=== PATIENT | female | born 1975 | race African-American/Black ===

== ENCOUNTER 2017-04-15 13:19 | Emergency (ER) | payer MEDICAID ==
[~2017-04-15] VITALS: Ht 160 cm; Wt 68.5 kg
[2017-04-15] MEDS ORDERED: VIBRAMYCIN100 MG ORAL (13:30)
[2017-04-15 13:44] VITALS: BP 134/76
--- NOTE | 2017-04-15 14:03 | Emergency Room Report ---
History of Present Illness General Chief Complaint: Nausea, Vomiting, and Diarrhea Source: Patient Present Illness HPI Patient 41-year-old female who presented after increased abdominal pain as well as vomiting and diarrhea. Patient reported having increased left lower quadrant pain. Patient reports having increased left lower abdominal cramping and tenderness. She denied any fever. Patient reported having no hematemesis or bloody stools. She denied recent surgery. She had previous visit for similar symptoms and was started on doxycycline. Had diarrhea had began prior antibiotics. Patient taken Imodium with some improvement Allergies: Coded Allergies: No Known Allergies (Unverified , 04/15/17) Patient History Past Medical History: see triage record Last Menstrual Period: 04/07/17 Reviewed Nursing Documentation: PMH: Agreed, PSxH: Agreed Nursing Documentation-PMH Past Medical History: No Stated History Review of Systems All Other Systems: negative except mentioned in HPI Physical Exam Vital Signs Date Time Temp Pulse Resp B/P (MAP) Pulse Ox O2 Delivery O2 Flow Rate FiO2 04/15/17 13:27 97.5 63 18 134/76 100 Room Air Sp02 EP Interpretation: reviewed, normal General Appearance: normal inspection, well appearing, no apparent distress, alert, GCS 15 Head: atraumatic ENT: normal ENT inspection, hearing grossly normal, normal voice Neck: normal inspection, full range of motion, supple, no bony tend Respiratory: normal inspection, lungs clear, normal breath sounds, no respiratory distress, no retraction, no wheezing Cardiovascular #1: regular rate, rhythm, no edema Gastrointestinal: normal inspection, normal bowel sounds, non tender, soft, no guarding, no hernia Genitourinary: no CVA tenderness Musculoskeletal: normal inspection, back normal, normal range of motion Neurologic: normal inspection, alert, oriented x3, responsive, sergeant of corrections III-XII nml as tested, speech normal Psychiatric: normal inspection, judgement/insight normal, mood/affect normal Skin: normal inspection, normal color, no rash Medical Decision Making Diagnostic Impression: Primary Impression: Gastroenteritis ER Course Patient presented for abdominal pain. Differential diagnoses included ischemic bowel, appendicitis, perforated viscus, abdominal aortic aneurysm, inferior myocardial infarction, viral gastroenteritis Because of complexity of patient's case laboratory testing and imaging studies were ordered.CT abdomen pelvis read by radiology showed no evidence of acute bowel obstruction or appendicitis. Laboratory testing was unremarkable. The patient is advised to follow up with primary care doctor in 1-2 days. Patient is advised to return if any worsening condition or if any changes in status that are concerning. Labs Test 04/15/17 13:22 04/15/17 14:15 Urine Color Pale yellow Urine Appearance Clear Urine pH 6 (4.5-8.0) Urine Specific [place] 1.015 (1.005-1.035) Urine Protein Negative (NEGATIVE) Urine Glucose (UA) Negative (NEGATIVE) Urine Ketones Negative (NEGATIVE) Urine Occult Blood 3+ (NEGATIVE) Urine Nitrite Negative (NEGATIVE) Urine Bilirubin Negative (NEGATIVE) Urine Urobilinogen Normal MG/DL (0.0-1.0) Urine Leukocyte Esterase Negative (NEGATIVE) Urine RBC 2-4 /HPF (0 - 2) Urine WBC 0-2 /HPF (0 - 2) Urine Squamous Epithelial Cells Occasional /LPF Urine Bacteria None /HPF (NONE) Urine HCG, Qualitative Negative White Blood Count 5.5 K/UL (4.8-10.8) Red Blood Count 3.68 M/UL (4.20-5.40) Hemoglobin 12.5 G/DL (12.0-16.0) Hematocrit 37.5 % (37.0-47.0) Mean Corpuscular Volume 102 FL (80-99) Mean Corpuscular Hemoglobin 34.0 PG (27.0-31.0) Mean Corpuscular Hemoglobin Concent 33.4 G/DL (32.0-36.0) Red Cell Distribution Width 11.2 % (11.6-14.8) Platelet Count 255 K/UL (150-450) Mean Platelet Volume 7.6 FL (6.5-10.1) Neutrophils (%) (Auto) 41.3 % (45.0-75.0) Lymphocytes (%) (Auto) 44.3 % (20.0-45.0) Monocytes (%) (Auto) 11.8 % (1.0-10.0) Eosinophils (%) (Auto) 0.8 % (0.0-3.0) Basophils (%) (Auto) 1.9 % (0.0-2.0) Sodium Level 139 MMOL/L (136-145) Potassium Level 3.9 MMOL/L (3.5-5.1) Chloride Level 104 MMOL/L (98-107) Carbon Dioxide Level 26 MMOL/L (21-32) Anion Gap 9 mmol/L (5-15) Blood Urea Nitrogen 7 mg/dL (7-18) Creatinine 0.7 MG/DL (0.55-1.30) Estimat Glomerular Filtration Rate > 60 mL/min (>60) Glucose Level 90 MG/DL (74-106) Calcium Level 9.1 MG/DL (8.5-10.1) Total Bilirubin 0.4 MG/DL (0.2-1.0) Aspartate Amino Transf (AST/SGOT) 17 U/L (15-37) Alanine Aminotransferase (ALT/SGPT) 18 U/L (12-78) Alkaline Phosphatase 47 U/L (46-116) Total Protein 7.3 G/DL (6.4-8.2) Albumin 3.9 G/DL (3.4-5.0) Globulin 3.4 g/dL Albumin/Globulin Ratio 1.1 (1.0-2.7) Lipase 96 U/L (73-393) Last Vital Signs Date Time Temp Pulse Resp B/P (MAP) Pulse Ox O2 Delivery O2 Flow Rate FiO2 04/15/17 13:44 97.5 18 134/76 100 Room Air 04/15/17 13:27 63 Status: improved Disposition: HOME, SELF-CARE Condition: Stable Scripts Dicyclomine Hcl* (BENTYL*) 10 Mg Capsule 10 MG ORAL FOUR TIMES A DAY, #20 CAP Prov: Sanya Bermudez 04/15/17 Ondansetron (Zofran) 4 Mg Tablet 4 MG ORAL Q6H Y for Nausea & Vomiting, #30 TAB 0 Refills Prov: Sanya Bermudez 04/15/17 Referrals: [facility] (PCP) Sanya Bermudez Apr 15, 2017 14:03
[2017-04-15 14:12] LABS: APPEARANCE,URINE CLEAR; BILIRUBIN, URINE NEGATIVE (NEGATIVE); COLOR,URINE PALE YELLOW; GLUCOSE, URINE (UA) NEGATIVE (NEGATIVE); KETONES,URINE NEGATIVE (NEGATIVE); LEUKOCYTE ESTERASE ,URINE NEGATIVE (NEGATIVE); NITRITE,URINE NEGATIVE (NEGATIVE); PH,URINE 6 (4.5-8.0); PROTEIN,URINE NEGATIVE (NEGATIVE); UROBILINOGEN,URINE NORMAL MG/DL (0.0-1.0)
[2017-04-15] MEDS ORDERED: Lidocaine 2% Visc 15ml soln ORAL ONE (14:15)
[2017-04-15] MEDS ORDERED: Dicyclomine HCl 10mg/5ml oral soln ORAL ONE (14:15)
[2017-04-15] MEDS ORDERED: Mylanta II UD 30ml ORAL ONE (14:15)
[2017-04-15 14:34] LABS: BASOPHILS % (AUTO) 1.9 % (0.0-2.0); EOSINOPHILS % (AUTO) 0.8 % (0.0-3.0); HEMATOCRIT 37.5 % (37.0-47.0); HEMOGLOBIN 12.5 G/DL (12.0-16.0); LYMPHOCYTES % (AUTO) 44.3 % (20.0-45.0); MEAN CORPUSCULAR VOLUME 102 FL (80-99); MONOCYTES % (AUTO) 11.8 % (1.0-10.0); NEUTROPHILS % (AUTO) 41.3 % (45.0-75.0); PLATELET COUNT 255 K/UL (150-450); RED BLOOD COUNT 3.68 M/UL (4.20-5.40); RED CELL DISTRIBUTION WIDTH 11.2 % (11.6-14.8); WHITE BLOOD COUNT 5.5 K/UL (4.8-10.8)
[2017-04-15 15:00] LABS: ANION GAP 9 mmol/L (5-15); BLOOD UREA NITROGEN 7 mg/dL (7-18); CALCIUM 9.1 MG/DL (8.5-10.1); CARBON DIOXIDE 26 MMOL/L (21-32); CHLORIDE 104 MMOL/L (98-107); CREATININE 0.7 MG/DL (0.55-1.30); POTASSIUM 3.9 MMOL/L (3.5-5.1); SODIUM 139 MMOL/L (136-145)
[2017-04-15 15:07] LABS: ALANINE AMINOTRANSFERASE 18 U/L (12-78); ALBUMIN 3.9 G/DL (3.4-5.0); ALBUMIN/GLOBULIN RATIO 1.1 (1.0-2.7); ALKALINE PHOSPHATASE 47 U/L (46-116); ASPARTATE AMINO TRANSFERASE 17 U/L (15-37); BILIRUBIN,TOTAL 0.4 MG/DL (0.2-1.0)
[2017-04-15 15:39] VITALS: BP 133/70
--- NOTE | 2017-04-15 16:16 | Diagnostic Imaging Report ---
Indication: Abdominal pain Technique: Continuous helical transaxial imaging of the abdomen and pelvis was obtained from the lung bases to the pubic symphysis during intravenous contrast administration. Coronal 2-D reformats were also obtained. Study obtained in a Siemens sensation [address] Automatic Exposure Control was utilized. Total Dose length Product (DLP): [address] Dose Index Volume (CTDIvol): 0.15, 15.91 mGy Comparison: None Findings: The lung bases are clear. The appendix is retrocecal and appears normal. There is no evidence of bowel obstruction. Uterus and both ovaries are noted. Small ovarian follicles or cysts are present. Bladder is unremarkable. There is no hydronephrosis. Both kidneys enhance normally. There are no renal stones identified. The liver and spleen appear unremarkable. The gallbladder is contracted and not evaluated well on this study. Impression: No acute findings identified. The CT scanner at [facility] is accredited by the [employer] and the scans are performed using dose optimization techniques as appropriate to a performed exam including Automatic Exposure control.
[2017-04-15] MEDS ORDERED: ZOFRAN4 MG ORAL (16:56)
[2017-04-15] MEDS ORDERED: BENTYL10 MG ORAL (16:56)
[2017-04-15 17:14] VITALS: BP 133/70
== END 2017-04-15 17:17 | disposition home or self-care (01) ==
LOC: EMR 13:40
DX: K52.9 Noninfective gastroenteritis and colitis, unspecified (principal)
CPT/HCPCS: 36415; 74177; 80053; 81003; 81025; 83690; 85025; 96374; 99284; Q9967

== ENCOUNTER 2018-06-17 21:44 | Emergency (ER) | payer MEDICAID ==
[~2018-06-17] VITALS: Ht 160 cm; Wt 74.8 kg
[~2018-06-17 21:44] MED LIST: BENTYL10 MG ORAL; VIBRAMYCIN100 MG ORAL; ZOFRAN4 MG ORAL
[2018-06-17] MEDS ORDERED: NKM (22:01)
[2018-06-17] MEDS ORDERED: DiphenhydrAMINE 50mg/ml Inj IVP ONE (22:30)
[2018-06-17] MEDS ORDERED: Metoclopramide 10mg/2ml Inj IVP ONE (22:30)
[2018-06-17] MEDS ORDERED: Morphine Sulfate 2mg/ml Inj IVP ONE (22:30)
--- NOTE | 2018-06-17 22:30 | Emergency Room Report ---
History of Present Illness General Chief Complaint: Back Pain-No Injury Source: Patient Present Illness HPI Patient presents with 4 days of back pain, muscle aches and abdominal bloating. She's not sure whether she is at this time. She has also felt nauseated. Today she started feeling cold but didn't document any fevers. She' s never had illness like this before. She denies any trauma. There is no dysuria. She is not sure if she some food to cause these problems. No sore throat, cough, wheezing, chest pain, diarrhea. 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 Last Menstrual Period: 05/30/2018 Now: No : 6 Para: 2 Reviewed Nursing Documentation: PMH: Agreed; PSxH: Agreed Nursing Documentation-PMH Past Medical History: No Stated History Review of Systems All Other Systems: negative except mentioned in HPI Physical Exam Vital Signs Date Time Temp Pulse Resp B/P (MAP) Pulse Ox O2 Delivery O2 Flow Rate FiO2 06/17/18 21:58 98.1 58 16 128/71 99 Room Air Sp02 EP Interpretation: reviewed, normal General Appearance: well appearing, GCS 15, mild distress Head: normocephalic Eyes: bilateral eye normal inspection, bilateral eye PERRL ENT: normal pharynx, moist mucus membranes Neck: supple Respiratory: chest non-tender, lungs clear, normal breath sounds Cardiovascular #1: regular rate, rhythm Cardiovascular #2: 2+ radial (R) Gastrointestinal: normal inspection, normal bowel sounds, no mass, non- distended, no guarding, no rebound, tenderness - Diffuse but more epigastric Genitourinary: no CVA tenderness Musculoskeletal: gait/station normal, normal range of motion, tender - Lumbar area more musculoskeletal also and upper back Neurologic: alert, oriented x3, grossly normal Psychiatric: anxious Skin: normal inspection, warm/dry Medical Decision Making Diagnostic Impression: Primary Impression: Abdominal pain Qualified Codes: R10.84 - Generalized abdominal pain Additional Impressions: Vomiting Qualified Codes: R11.2 - Nausea with vomiting, unspecified Back pain Qualified Codes: M54.9 - Dorsalgia, unspecified ER Course Patient presents with back pain and muscle aches and bloating. Differential includes viral syndrome, gastroenteritis, early , pyelonephritis amongst others. She will be evaluated with labs. She will be treated with IV hydration and analgesia. If test is negative of consideration of possible x-rays of her back. Labs with normal CBC with differential. CMP normal. Urinalysis with few red blood cells. test negative. Patient is improved with treatment. The pain is decreased and she is no longer vomiting and nausea is improved. Discussed outpatient observation with the patient. Patient stable for outpatient observation and treatment. Laboratory Tests Test 06/17/18 23:00 06/18/18 01:45 Urine Color Pale yellow Urine Appearance Clear Urine pH 7 (4.5-8.0) Urine Specific [place] 1.010 (1.005-1.035) Urine Protein Negative (NEGATIVE) Urine Glucose (UA) Negative (NEGATIVE) Urine Ketones Negative (NEGATIVE) Urine Blood 3+ (NEGATIVE) H Urine Nitrite Negative (NEGATIVE) Urine Bilirubin Negative (NEGATIVE) Urine Urobilinogen Normal MG/DL (0.0-1.0) Urine Leukocyte Esterase Negative (NEGATIVE) Urine RBC 10-15 /HPF (0 - 2) H Urine WBC 0-2 /HPF (0 - 2) Urine Squamous Epithelial Cells Few /LPF (NONE/OCC) Urine Bacteria Few /HPF (NONE) Urine HCG, Qualitative Negative (NEGATIVE) Sodium Level 136 MMOL/L (136-145) Potassium Level 5.0 MMOL/L (3.5-5.1) Chloride Level 105 MMOL/L (98-107) Carbon Dioxide Level 25 MMOL/L (21-32) Anion Gap 6 mmol/L (5-15) Blood Urea Nitrogen 14 mg/dL (7-18) Creatinine 0.7 MG/DL (0.55-1.30) Estimate Glomerular Filtration Rate > 60 mL/min (>60) Glucose Level 90 MG/DL (74-106) Calcium Level 9.0 MG/DL (8.5-10.1) Total Bilirubin 0.3 MG/DL (0.2-1.0) Aspartate Amino Transferase (AST) 36 U/L (15-37) Alanine Aminotransferase (ALT) 21 U/L (12-78) Alkaline Phosphatase 55 U/L (46-116) Total Protein 7.3 G/DL (6.4-8.2) Albumin 3.6 G/DL (3.4-5.0) Globulin 3.7 g/dL Albumin/Globulin Ratio 1.0 (1.0-2.7) Lipase 212 U/L (73-393) Chlamydia trachomatis RNA Pending Neisseria gonorrhoeae RNA Pending White Blood Count 5.4 K/UL (4.8-10.8) Red Blood Count 3.44 M/UL (4.20-5.40) L Hemoglobin 11.5 G/DL (12.0-16.0) L Hematocrit 33.5 % (37.0-47.0) L Mean Corpuscular Volume 97 FL (80-99) Mean Corpuscular Hemoglobin 33.4 PG (27.0-31.0) H Mean Corpuscular Hemoglobin Concent 34.3 G/DL (32.0-36.0) Red Cell Distribution Width 11.9 % (11.6-14.8) Platelet Count 196 K/UL (150-450) Mean Platelet Volume 7.2 FL (6.5-10.1) Neutrophils (%) (Auto) 40.9 % (45.0-75.0) L Lymphocytes (%) (Auto) 46.3 % (20.0-45.0) H Monocytes (%) (Auto) 10.2 % (1.0-10.0) H Eosinophils (%) (Auto) 1.5 % (0.0-3.0) Basophils (%) (Auto) 1.1 % (0.0-2.0) Prothrombin Time 10.0 SEC (9.30-11.50) Prothrombin Time INR 0.9 (0.9-1.1) PTT 29 SEC (23-33) Last Vital Signs Date Time Temp Pulse Resp B/P (MAP) Pulse Ox O2 Delivery O2 Flow Rate FiO2 06/18/18 03:10 98.0 59 16 121/79 100 Room Air Status: improved Disposition: HOME, SELF-CARE Condition: Improved Scripts Ondansetron Odt* (ZOFRAN ODT*) 4 Mg Tab.rapdis 4 MG BC EVERY 8 HOURS for 8 Days, #10 TAB 1 Refill Prov: Rene Ely MD 06/18/18 Famotidine (PEPCID AC) 20 Mg Tablet 20 MG PO DAILY, #20 TAB Prov: Rene lEy MD 06/18/18 Rene Ely MD Jun 17, 2018 22:30
[2018-06-17 23:00] VITALS: BP 120/71
[2018-06-18] VITALS: BP 120/74
[2018-06-18] LABS: APPEARANCE,URINE CLEAR; BILIRUBIN, URINE NEGATIVE (NEGATIVE); COLOR,URINE PALE YELLOW; GLUCOSE, URINE (UA) NEGATIVE (NEGATIVE); KETONES,URINE NEGATIVE (NEGATIVE); LEUKOCYTE ESTERASE ,URINE NEGATIVE (NEGATIVE); NITRITE,URINE NEGATIVE (NEGATIVE); PH,URINE 7 (4.5-8.0); PROTEIN,URINE NEGATIVE (NEGATIVE); UROBILINOGEN,URINE NORMAL MG/DL (0.0-1.0)
[2018-06-18 00:01] LABS: ANION GAP 6 mmol/L (5-15); BLOOD UREA NITROGEN 14 mg/dL (7-18); CARBON DIOXIDE 25 MMOL/L (21-32); CHLORIDE 105 MMOL/L (98-107); CREATININE 0.7 MG/DL (0.55-1.30); SODIUM 136 MMOL/L (136-145)
[2018-06-18 00:06] LABS: ALANINE AMINOTRANSFERASE 21 U/L (12-78); ALBUMIN 3.6 G/DL (3.4-5.0); ALKALINE PHOSPHATASE 55 U/L (46-116); ASPARTATE AMINO TRANSFERASE 36 U/L (15-37); BILIRUBIN,TOTAL 0.3 MG/DL (0.2-1.0)
[2018-06-18] MEDS ORDERED: LET 3ml Soln TOPIC ONE (00:30)
[2018-06-18 01:54] LABS: BASOPHILS % (AUTO) 1.1 % (0.0-2.0); EOSINOPHILS % (AUTO) 1.5 % (0.0-3.0); HEMATOCRIT 33.5 % (37.0-47.0); HEMOGLOBIN 11.5 G/DL (12.0-16.0); LYMPHOCYTES % (AUTO) 46.3 % (20.0-45.0); MEAN CORPUSCULAR VOLUME 97 FL (80-99); MONOCYTES % (AUTO) 10.2 % (1.0-10.0); NEUTROPHILS % (AUTO) 40.9 % (45.0-75.0); PLATELET COUNT 196 K/UL (150-450); RED BLOOD COUNT 3.44 M/UL (4.20-5.40); RED CELL DISTRIBUTION WIDTH 11.9 % (11.6-14.8); WHITE BLOOD COUNT 5.4 K/UL (4.8-10.8)
[2018-06-18 02:04] LABS: INR 0.9 (0.9-1.1)
[2018-06-18] MEDS ORDERED: ONDANSETRON ODT4 MG BC (02:53)
[2018-06-18] MEDS ORDERED: PEPCID AC20 M2 PO (02:53)
[2018-06-18 03:10] VITALS: BP 121/79
== END 2018-06-18 | disposition home or self-care (01) ==
LOC: EMR 06-18 03:00
DX: R10.9 Unspecified abdominal pain (principal); R14.0 Abdominal distension (gaseous); M79.10 Myalgia, unspecified site; M54.5 Low back pain; M54.6 Pain in thoracic spine
CPT/HCPCS: 36415; 80053; 81003; 81025; 83690; 85025; 85610; 85730; 87491; 87590; 96361; 96374; 96375; 99284; J1200; J2270; J2765

== ENCOUNTER 2019-03-09 13:31 | Emergency (ER) | payer MEDICAID ==
[~2019-03-09] VITALS: Ht 160 cm; Wt 70.3 kg
[~2019-03-09 13:31] MED LIST changes: +NKM; +ONDANSETRON ODT4 MG BC; +PEPCID AC20 M2 PO
[2019-03-09 14:00] VITALS: BP 134/76
--- NOTE | 2019-03-09 14:00 | NUR ---
ED Nurse Note: Pt came in AAOx4, vss, with no signs of distress. pt. came from home with c/o left abdominal cramping pain for 1 week and vaginal spotting since yesteday
--- NOTE | 2019-03-09 14:11 | NUR ---
ED Nurse Note:urine sent to labs
--- NOTE | 2019-03-09 14:28 | NUR ---
Note connie in EDM - 03/09/19 at 1430 by [email or web address] ED Nurse Note: pt took oral medicatins with no issues.
--- NOTE | 2019-03-09 14:28 | Emergency Room Report ---
History of Present Illness General Chief Complaint: Female Urogenital Problems Source: Patient Present Illness HPI 43-year-old female presents to the emergency department complaining of 6 out of 10 severity low back and left lower quadrant pain in addition to vaginal spotting and cramping x1 week. Patient reports she was 2 days past due for her menstrual cycle. Patient reports recent unprotected intercourse 2 weeks ago she states she is not currently taking any control. She denies vaginal discharge otherwise. She denies adnexal tenderness or pain she denies swollen tender lymph nodes, joint pains, fevers or chills. Patient reports when she raises her left arm she has exacerbation of severe lower left-sided abdominal pain. Denies trauma or fall. Patient also reports tenderness to palpation to the left side of the low back. Patient denies midline spinal pain or tenderness. Denies constipation or diarrhea. Denies hematuria, urinary frequency, urgency or dysuria. She denies nausea or vomiting. Allergies: Coded Allergies: No Known Allergies (Unverified , 04/15/17) Patient History Past Medical History: see triage record Past Surgical History: none Pertinent Family History: none Last Menstrual Period: 02/09/19 Now: No Reviewed Nursing Documentation: PMH: Agreed; PSxH: Agreed Nursing Documentation-PMH Past Medical History: No Stated History Review of Systems All Other Systems: negative except mentioned in HPI Physical Exam Vital Signs Date Time Temp Pulse Resp B/P (MAP) Pulse Ox O2 Delivery O2 Flow Rate FiO2 03/09/19 13:47 98.2 58 18 121/75 (90) 99 Room Air Sp02 EP Interpretation: reviewed, normal General Appearance: alert, GCS 15, non-toxic, mild distress Head: normocephalic, atraumatic Eyes: bilateral eye normal inspection, bilateral eye PERRL ENT: hearing grossly normal, normal voice Neck: full range of motion Respiratory: chest non-tender, lungs clear, normal breath sounds, speaking full sentences Cardiovascular #1: regular rate, rhythm Gastrointestinal: normal bowel sounds, soft, non-distended, no guarding, tenderness - LLQ TTP, no adnexal ttp. Rectal: deferred Genitourinary: normal inspection, CVA tenderness (L) Musculoskeletal: back normal, gait/station normal, normal range of motion, tender - TTP to the left sided paraspinal musculature of the upper lumbar and lower t-spine area/ ttp radiating outward around the flank towards the anterior abdomen and LLQ. No midline spinous process tenderness. no step-offs. Neurologic: alert, oriented x3, responsive, motor strength/tone normal, sensory intact, speech normal, grossly normal Psychiatric: judgement/insight normal Skin: no rash Lymphatic: no adenopathy Medical Decision Making PA Attestation Dr. Bermudez is my supervising Physician whom patient management has been discussed with. Diagnostic Impression: Primary Impression: Colitis Additional Impression: Abdominal pain Qualified Codes: R10.32 - Left lower quadrant pain ER Course 43-year-old female presents to the emergency department complaining of 6 out of 10 severity low back and left lower quadrant pain in addition to vaginal spotting and cramping x1 week. Patient reports she was 2 days past due for her menstrual cycle. Patient reports recent unprotected intercourse 2 weeks ago she states she is not currently taking any control. She denies vaginal discharge otherwise. She denies adnexal tenderness or pain she denies swollen tender lymph nodes, joint pains, fevers or chills. Patient reports when she raises her left arm she has exacerbation of severe lower left-sided abdominal pain. Denies trauma or fall. Patient also reports tenderness to palpation to the left side of the low back. Patient denies midline spinal pain or tenderness. Denies constipation or diarrhea. Denies hematuria, urinary frequency, urgency or dysuria. She denies nausea or vomiting. Ddx considered but are not limited to , ovarian torsion, tubo-ovarian abscess, Diverticulitis, acute appy, diarrhea,UC, PUD, GE, pancreatitis, gallstone, kidney stone, pyelonephritis, UTI, obstruction. Vital signs: are WNL, pt. is afebrile H&PE are most consistent with LLQ and left flank pain will r/o pyelo, ectopic, renal calculi, pt. will require labs and imaging due to pain on examination. ORDERS: -CBC, CMP, lipase: WNL - UA: Most indicative of contamination: presence of equal amounts of bacteria and squamous cells, no elevation in inflammatory markers, nitrite negative. -Urine HcG: Negative - CT abdomen and pelvis no contrast: suspicious for colitis. normal appendix. ED INTERVENTIONS: -- Lidoderm TP - [place] PO DISCHARGE: At this time pt. is stable for d/c to home. Will provide printed patient care instructions, and any necessary prescriptions. Care plan and follow up instructions have been discussed with the patient prior to discharge. Labs Test 03/09/19 14:30 03/09/19 15:30 Urine Color Pale yellow Urine Appearance Clear Urine pH 7 (4.5-8.0) Urine Specific [place] 1.005 (1.005-1.035) Urine Protein Negative (NEGATIVE) Urine Glucose (UA) Negative (NEGATIVE) Urine Ketones Negative (NEGATIVE) Urine Blood 2+ (NEGATIVE) Urine Nitrite Negative (NEGATIVE) Urine Bilirubin Negative (NEGATIVE) Urine Urobilinogen Normal MG/DL (0.0-1.0) Urine Leukocyte Esterase 1+ (NEGATIVE) Urine RBC 0-2 /HPF (0 - 2) Urine WBC 0-2 /HPF (0 - 2) Urine Squamous Epithelial Cells Occasional /LPF Urine Bacteria Occasional /HPF (NONE) Urine HCG, Qualitative Negative (NEGATIVE) White Blood Count 5.4 K/UL (4.8-10.8) Red Blood Count 3.74 M/UL (4.20-5.40) Hemoglobin 12.6 G/DL (12.0-16.0) Hematocrit 36.0 % (37.0-47.0) Mean Corpuscular Volume 96 FL (80-99) Mean Corpuscular Hemoglobin 33.8 PG (27.0-31.0) Mean Corpuscular Hemoglobin Concent 35.1 G/DL (32.0-36.0) Red Cell Distribution Width 10.7 % (11.6-14.8) Platelet Count 209 K/UL (150-450) Mean Platelet Volume 7.6 FL (6.5-10.1) Neutrophils (%) (Auto) 49.8 % (45.0-75.0) Lymphocytes (%) (Auto) 39.9 % (20.0-45.0) Monocytes (%) (Auto) 7.4 % (1.0-10.0) Eosinophils (%) (Auto) 0.7 % (0.0-3.0) Basophils (%) (Auto) 2.1 % (0.0-2.0) Sodium Level 139 MMOL/L (136-145) Potassium Level 4.3 MMOL/L (3.5-5.1) Chloride Level 105 MMOL/L (98-107) Carbon Dioxide Level 26 MMOL/L (21-32) Anion Gap 8 mmol/L (5-15) Blood Urea Nitrogen 5 mg/dL (7-18) Creatinine 0.7 MG/DL (0.55-1.30) Estimat Glomerular Filtration Rate > 60 mL/min (>60) Glucose Level 92 MG/DL (74-106) Calcium Level 8.7 MG/DL (8.5-10.1) Total Bilirubin 0.5 MG/DL (0.2-1.0) Aspartate Amino Transf (AST/SGOT) 17 U/L (15-37) Alanine Aminotransferase (ALT/SGPT) 22 U/L (12-78) Alkaline Phosphatase 56 U/L (46-116) Total Protein 7.0 G/DL (6.4-8.2) Albumin 3.9 G/DL (3.4-5.0) Globulin 3.1 g/dL Albumin/Globulin Ratio 1.3 (1.0-2.7) Lipase 106 U/L (73-393) CT/MRI/US Diagnostic Results CT/MRI/US Diagnostic Results : Imaging Test Ordered: CT Abdomen and Pelvis With and Without Contrast Impression " Normal appendix, fluid and gas-filled small bowel loops nonspecific but may represent enteritis or ileus, mild prominence of the pérez of the colon may be secondary to under distention or colitis is not excluded." Per official radiology report- Please see report for specific details. Last Vital Signs Date Time Temp Pulse Resp B/P (MAP) Pulse Ox O2 Delivery O2 Flow Rate FiO2 03/09/19 13:47 98.2 58 18 121/75 (90) 99 Room Air Status: improved Disposition: HOME, SELF-CARE Condition: Stable Scripts Dicyclomine Hcl* (DICYCLOMINE HCL*) 10 Mg Capsule 10 MG ORAL TID, #9 CAP Prov: Tina Jefferson 03/09/19 Acetaminophen With Codeine (T#3) (TYLENOL #3 TAB*) Y Tab 1 TAB ORAL Q6H PRN for For Pain, #10 TAB Prov: Tina Jefferson 03/09/19 Metronidazole* (FLAGYL*) 500 Mg Tablet 500 MG ORAL BID for 7 Days, #14 TAB Prov: Tina Jefferson 03/09/19 Referrals: [facility] (PCP) Patient Instructions: Colitis Additional Instructions: Take medications as directed. ! Do not drink alcohol while taking Flagyl/Metronidazole as this will cause a skin reaction. Follow up with a Primary Care Provider in 3-5 days, even if your symptoms have resolved. --Please review list of primary care clinics, if you do not already have a primary care provider Return sooner to ED if new symptoms occur, or current symptoms become worse. - Please note that this Emergency Department Report was dictated using [employer] director technology software, occasionally this can lead to erroneous entry secondary to interpretation by the dictation equipment. Tina Jefferson Mar 09, 2019 14:28
--- NOTE | 2019-03-09 14:35 | NUR ---
ED Nurse Note: Medication applied with no issues.
[2019-03-09 14:47] LABS: APPEARANCE,URINE CLEAR; BILIRUBIN, URINE NEGATIVE (NEGATIVE); COLOR,URINE PALE YELLOW; GLUCOSE, URINE (UA) NEGATIVE (NEGATIVE); KETONES,URINE NEGATIVE (NEGATIVE); LEUKOCYTE ESTERASE ,URINE 1+ (NEGATIVE); NITRITE,URINE NEGATIVE (NEGATIVE); PH,URINE 7 (4.5-8.0); PROTEIN,URINE NEGATIVE (NEGATIVE); UROBILINOGEN,URINE NORMAL MG/DL (0.0-1.0)
[2019-03-09 15:42] LABS: BASOPHILS % (AUTO) 2.1 % (0.0-2.0); EOSINOPHILS % (AUTO) 0.7 % (0.0-3.0); HEMOGLOBIN 12.6 G/DL (12.0-16.0); LYMPHOCYTES % (AUTO) 39.9 % (20.0-45.0); MEAN CORPUSCULAR VOLUME 96 FL (80-99); MONOCYTES % (AUTO) 7.4 % (1.0-10.0); NEUTROPHILS % (AUTO) 49.8 % (45.0-75.0); PLATELET COUNT 209 K/UL (150-450); RED BLOOD COUNT 3.74 M/UL (4.20-5.40); RED CELL DISTRIBUTION WIDTH 10.7 % (11.6-14.8); WHITE BLOOD COUNT 5.4 K/UL (4.8-10.8)
[2019-03-09 15:47] LABS: ANION GAP 8 mmol/L (5-15); BLOOD UREA NITROGEN 5 mg/dL (7-18); CALCIUM 8.7 MG/DL (8.5-10.1); CARBON DIOXIDE 26 MMOL/L (21-32); CHLORIDE 105 MMOL/L (98-107); CREATININE 0.7 MG/DL (0.55-1.30); POTASSIUM 4.3 MMOL/L (3.5-5.1); SODIUM 139 MMOL/L (136-145)
[2019-03-09 15:51] LABS: ALANINE AMINOTRANSFERASE 22 U/L (12-78); ALBUMIN 3.9 G/DL (3.4-5.0); ALBUMIN/GLOBULIN RATIO 1.3 (1.0-2.7); ALKALINE PHOSPHATASE 56 U/L (46-116); ASPARTATE AMINO TRANSFERASE 17 U/L (15-37); BILIRUBIN,TOTAL 0.5 MG/DL (0.2-1.0)
[2019-03-09] MEDS ORDERED: HYDROcodone/Acetamin 5/325 tab ORAL ONE (16:00)
[2019-03-09] MEDS ORDERED: Omnipaque-300 100ml vial INJ PRN (16:15)
--- NOTE | 2019-03-09 16:45 | NUR ---
ED Nurse Note: Pt back from CT.
--- NOTE | 2019-03-09 17:18 | Diagnostic Imaging Report ---
EXAM: CT Abdomen and Pelvis Without and With Intravenous Contrast CLINICAL HISTORY: PAIN TECHNIQUE: Axial computed tomography images of the abdomen and pelvis without and with intravenous contrast. CTDI is 18.7 mGy and DLP is 1003.1 mGy-cm. One or more of the following dose reduction techniques were used: automated exposure control, adjustment of the mA and or kV according to patient size, use of iterative reconstruction technique. COMPARISON: CT abdomen pelvis on 04 15 2017 FINDINGS: Lung bases: Unremarkable. No mass. No consolidation. ABDOMEN: Liver: Mild focal fat along the falciform ligament. Gallbladder and bile ducts: Unremarkable. No calcified stones. No ductal dilation. Pancreas: Unremarkable. No mass. No ductal dilation. Spleen: Unremarkable. No splenomegaly. Adrenals: Unremarkable. No mass. Kidneys and ureters: Small hypodensity in the right kidney is too small to definitively characterize. No hydronephrosis or obstructing stone. Stomach and bowel: Fluid and gas-filled small bowel loops are nonspecific but may represent enteritis or ileus. Mild prominence of the pérez of the colon may be secondary to underdistention. Element of colitis is not excluded. PELVIS: Appendix: Normal appendix. Bladder: Unremarkable. No mass. No stones. Reproductive: Collapsing cyst in the right ovary. ABDOMEN and PELVIS: Intraperitoneal space: Unremarkable. No free air. No significant fluid collection. Bones joints: See above. Soft tissues: Small fat-containing umbilical hernia. Vasculature: Unremarkable. No abdominal aortic aneurysm. Lymph nodes: Unremarkable. No enlarged lymph nodes. IMPRESSION: 1. Fluid and gas-filled small bowel loops are nonspecific but may represent enteritis or ileus. 2. Mild prominence of the pérez of the colon may be secondary to underdistention. Element of colitis is not excluded.
[2019-03-09] MEDS ORDERED: DICYCLOMINE HCL10 MG ORAL (17:52)
[2019-03-09] MEDS ORDERED: METRONIDAZOLE500 MG ORAL (17:52)
[2019-03-09] MEDS ORDERED: ACETAMINOPHEN-1 EAC1 ORAL (17:52)
[2019-03-09 18:14] VITALS: BP 134/76
--- NOTE | 2019-03-09 18:14 | NUR ---
ER DISCHARGE NOTE: Patient is cleared to be discharged per ERMD, pt is aox4, on room air, with stable vital signs. pt was given dc and prescription instructions, pt was able to verbalize understanding, pt id band and iv site removed without complications. pt is able to ambulate with steady gait. pt took all belongings. Pt states pain was better.
== END 2019-03-09 18:14 | disposition home or self-care (01) ==
LOC: EMR 14:19
DX: K52.9 Noninfective gastroenteritis and colitis, unspecified (principal); R10.32 Left lower quadrant pain
CPT/HCPCS: 36415; 74177; 80053; 81003; 81025; 83690; 85025; Q9967; Z7502; 99284